=== PATIENT | female | born 1975 | race Caucasian/White ===

== ENCOUNTER 2016-12-19 17:21 | Emergency (ER) | payer SELFPAY ==
[~2016-12-19] VITALS: Ht 170.2 cm; Wt 68.8 kg
[~2016-12-19 17:21] MED LIST: LORTA5 PO
[2016-12-19 17:23] VITALS: BP_SYST 103; BP_SYST 157; BP_DIAS 55; BP_DIAS 84; PULSE 82; PULSE 94; RESP 16; TEMP 98.3; TEMP 98.5; O2SAT 100; O2SAT 96
[2016-12-19] MEDS ORDERED: VENTAER INH (17:56)
[2016-12-19] MEDS ORDERED: ASPIPOW PO (17:56)
--- NOTE | 2016-12-19 18:03 | PD ---
HPI Chief Complaint: Lump, Cyst, Hernia Time Seen by Provider: 17:35 Travel History International Travel<30 days: No Contact w/Intl Traveler<30days: No Traveled to known affect area: No History of Present Illness HPI So 41 year-old woman presents to the emergency department complaining of right breast mass. States she first noticed it in September. Over the past week or so she's been feeling a little bit more although it is not really painful. She came in today because her noticed it. She does have insurance right now and she was trying to wait until August when her insurance would be reinstated. She's been feeling otherwise well. No unintentional weight loss or constitutional symptoms. She states she has had discharge from that nipple ever since she breast fed her children. No change. No blood. No other complaints. History Past Medical History Narrative Medical Asthma Tetanus Vaccination: Unknown LMP: 3 weeks ago Social History Alcohol Use: Yes (occ) Tobacco Use: Yes (1/2 -1 DAY ) Allergies-Medications (Allergen,Severity, Reaction): Coded Allergies: No Known Allergies (Unverified , 12/19/16) Reported Meds & Prescriptions Reported Meds & Active Scripts Active Reported Acetyl Salicylic Acid Powder (Aspirin) 1 Pow Pow 1 Packet PO DIRECTED PRN Ventolin Hfa 18 GM Inh (Albuterol Sulfate) 90 Mcg/Act Aer 2 Puff INH Q4-6H PRN Review of Systems Except as stated in HPI: all other systems reviewed are Neg Physical Exam Narrative GENERAL: Well-appearing 41 year-old woman, no acute distress. SKIN: Focused skin assessment warm/dry. CARDIOVASCULAR: Regular rate and rhythm. No murmur appreciated. RESPIRATORY: No accessory muscle use. Clear to auscultation. Breath sounds equal bilaterally. GASTROINTESTINAL: Abdomen soft, non-tender, nondistended. Hepatic and splenic margins not palpable. BREASTS: Pendulous breasts, symmetric in contour. On the upper outer quadrant on the right breast her some skin changes with erythema redness. There is a palpable breast mass in that area approximately 2 x 2 centimeters. It freely mobile without any evidence of attachment to the underlying breast wall. Axillary exam reveals no evidence of adenopathy bilaterally. Data Data Last Documented VS Vital Signs Date Time Temp Pulse Resp B/P Pulse Ox O2 Delivery O2 Flow Rate FiO2 12/19/16 17:23 98.5 82 16 103/55 100 Orders Mandatory Outpatient Referral (12/19/16 17:55) Mandatory Outpatient Referral (12/19/16 17:55) MDM Medical Decision Making Medical Screen Exam Complete: Yes Emergency Medical Condition: Yes Differential Diagnosis Breasts CA, infection, abscess, other Narrative Course Medical decision making Is a 41 year-old woman with a breast mass in the right breast. Concern for malignancy. Infection seems most likely given the time course. She does have some evidence of inflammatory skin changes overlying the breast. Spoke with Dr. Skinner, is special education curriculum specialist for general surgery. He'll see the patient the office on Wednesday or Wednesday. She will call first in the morning. A mandatory outpatient referral was put in for Dr. Skinner, as well as for the breast Navigator. Patient apparently had a lapse her insurance coverage because she missed open enrollment at her job. She was worried because having otitis and will DC would constitute a pre-existing condition. Diagnosis Primary Impression: Breast mass Referrals: Cali Skinner MD 1 day Additional Instructions: Follow-up with Dr. Skinner. Call at 8:30 Wednesday morning to arrange for follow- up. You may be contacted by our Breast Navigator. Email me if you have not been able to arrange follow-up by of next week. Disposition: 01 DISCHARGE HOME Condition: Fred Alejo MD December 19, 2016 18:03
== END 2016-12-19 18:19 | disposition home or self-care (01) ==
LOC: PHED 17:21
DX: N63 Unspecified lump in breast (principal); F17.210 Nicotine dependence, cigarettes, uncomplicated
CPT/HCPCS: 99283